=== PATIENT | male | born 1950 | race African-American/Black ===

== ENCOUNTER 2018-06-18 05:32 | Inpatient (IN) | payer OTHER ==
--- NOTE | 2018-06-18 05:58 | PDOC ---
Attending Attestation - Resident Resident Name: Niecy Davalos - ED Attending Attestation I have performed the following: I have examined & evaluated the patient, The case was reviewed & discussed with the resident, I agree w/resident's findings & plan - HPI HPI: 06/18/18 07:22 Pt comes with a gnawing CP that has been persistent x 2 days. Pt states that the pain cannot be described because at time it is pain at times, gastritis at time, burning at times. Pt takes an asa daily. 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 He has known DM and HTN Pt had a stress test, but doesn't know results. Pt has a normal looking EKG and CXR; 1st trop is POSITIVE, Other labs pending. - Physicial Exam PE: 06/18/18 07:26 Agree with resident exam - Medical Decision Making 06/18/18 07:26 Pt will be admitted to tele and he will be started on heparin and asa. Day attending is aware of him; they will follow serial EKGs
[2018-06-18 06:07] VITALS: BMI 28.6
--- NOTE | 2018-06-18 06:12 | PDOC ---
History of Present Illness - General Stated Complaint: CHEST PAIN Time Seen by Provider: 06/18/18 05:58 - History of Present Illness Initial Comments: Seamus Butler is a 68yo man with a PMH of DM, HTN, HLD and recent stress test for new onset of chest pain who presents with continued mid-sternal chest pain. He reports that he has had similar pain for the past two weeks. He went to see his PMD and was referred for a stress test, which was completed last week, but he has not gotten the results yet. Mr Butler reports that the pain is mid-sternal, non-radiating, and uncomfortable. He is unable to describe the pain any further. It lasts several minutes and resolves if he sits quietly and takes deep breaths. He has no associated diaphoresis, nausea, vomiting, or SOB. Initially two weeks ago, the pain occurred when walking or when carrying something heavy. He feels that the pain is getting worse because last night he had similar pain when laying down to sleep and when he rolled over to his left side in bed. He decided to present to the ED here because he had the recent stress test completed here. He does not currently have any pain or complaints. Past History - Past Medical History Allergies/Adverse Reactions: Allergies Allergy/AdvReac Type Severity Reaction Status Date / Time No Known Allergies Allergy Verified 06/18/18 06:10 Home Medications: Ambulatory Orders Aspirin [ASA -] 81 mg PO DAILY 06/18/18 Hydrochlorothiazide 25 mg PO DAILY 06/18/18 Lisinopril 10 mg PO DAILY 06/18/18 Metformin HCl [Glucophage] 1,000 mg PO BID 06/18/18 Simvastatin 20 mg PO DAILY 06/18/18 Tamsulosin HCl [Flomax] 0.4 mg PO DAILY 06/18/18 - Suicide/Smoking/Psychosocial Hx Smoking History: Never smoked Have you smoked in the past 12 months: No Hx Alcohol Use: No Drug/Substance Use Hx: No Review of Systems - Review of Systems Comments:: General: No fevers, no chills, no weight or appetite change, no malaise HEENT: No changes in vision, no changes in hearing, no congestion, no sore throat CV: See HPI. No palpitations, no LE edema Pulm: No SOB, no cough, no wheezing GI: No nausea or vomiting, no change in bowel habits, no melena : No frequency, no urgency, no dysuria Musc: No back pain, no joint swelling, no recent injury Skin: No rash, no lesions, no erythema Endo: No excessive thirst, no heat/cold intolerance Heme: No unusual bruising or bleeding, no swollen glands Neuro: No syncope, no numbness/tingling, no focal weakness Vasc: No claudication Psych: No recent change in mood, no SI or HI *Physical Exam - Vital Signs Last Vital Signs Temp Pulse Resp BP Pulse Ox 98.3 F 65 18 163/78 100 06/18/18 06:04 06/18/18 06:04 06/18/18 06:04 06/18/18 06:04 06/18/18 06:04 - Physical Exam Comments: General: Comfortable, no acute distress HEENT: PERRL, EOMI, MMM, voice normal, normal neck ROM, no LAD Cards: RRR, no murmur appreciated. No reproducible pain. Pulm: Comfortable on room air, clear to auscultation bilaterally Abd: Soft, nontender, nondistended : No CVA tenderness Ext: Atraumatic. No LE edema. ROM intact. Strength 5/5 and equal bilaterally Vasc: Extremities WWP. Skin: Normal color, no rashes or lesions Neuro: A&Ox3, CN grossly intact, normal speech, motor/sensory grossly intact and symmetric Psych: Mood appropriate to situation Medical Decision Making - Medical Decision Making 06/18/18 06:50 Asif Butler is a 68yo man with a PMH of HTN, HLD, DM, recent TIA, and new onset of angina who presents with mid-sternal chest pain similar to what he has been experiencing for the past several weeks. - No current pain while in the ED - EKG completed. Normal sinus, 60/min, left axis deviation. No T-wave or ST abnormalities - Cardiac profile sent - Recent stress test on 06/14/18 indicates angina. Symptoms are most likely due to recently diagnosed angina. 06/18/18 07:03 - Trop positive at 0.08 - CBC, chemistry, coags ordered for admission to telemetry 06/18/18 07:12 Patient signed out to Dr Richards for remainder of care. Seen and discussed with Dr Spivey. Niecy Davalos PGY1 *DC/Admit/Observation/Transfer Diagnosis at time of Disposition: Angina pectoris - Discharge Dispostion Condition at time of disposition: Stable - Referrals Referrals: Horace Oliver MD [Primary Care Provider] - - Patient Instructions Printed Discharge Instructions: DI for Angina Additional Instructions: Discharge Instructions; - You were seen in the ED for chest pain - Your EKG and troponin (a blood tests that shows possible heart damage) were both normal - A recent stress test showed that you have angina. This is most likely the cause of your pain. Please see the attached information sheet. 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 They can discuss your stress test results more thoroughly. - Seek immediate medical attention if you have chest pain that does not resolve with rest, new or different chest pain, pain with shortness of breath, sweating , nausea/vomiting, or that moves to your jaw or arm. - Post Discharge Activity
[2018-06-18] MEDS ORDERED: HEPARIN NA (PORCINE) 5,000 UNITS/ML 1ML VIAL IVPUSH PRN ×2 (07:17)
[2018-06-18] MEDS ORDERED: ASPIRIN 81 MG CHEWABLE TABLETS PO ONE (07:18)
--- NOTE | 2018-06-18 07:25 | PDOC ---
*Physical Exam - Vital Signs Last Vital Signs Temp Pulse Resp BP Pulse Ox 98.3 F 65 18 163/78 100 06/18/18 06:04 06/18/18 06:04 06/18/18 06:04 06/18/18 06:04 06/18/18 06:04 - Physical Exam Comments: 06/18/18 11:17 Briefly, this is a 68M w/ pmhx of HTN, HLD, DM who presents with 2 week history of substernal chest pressure worsened by exertion. Recent stress test done 06/14 showed mod sized intensity inferior septal reversible perfusion defect c/w ischemia. Normal EF 54%. ED Treatment Course - LABORATORY CBC & Chemistry Diagram: 06/18/18 07:18 06/18/18 08:03 - ADDITIONAL ORDERS Additional order review: Laboratory Results 06/18/18 06:05 Creatine Kinase 387 H Creatine Kinase Index 0.7 CK-MB (CK-2) 2.8 Troponin I 0.08 H Medical Decision Making - Medical Decision Making 06/18/18 07:[address] Davalos. 68M w/ pmhx of HLD, HTN, DM presents today for chest pain, recently seen by cardio, with stress test done. Pt has had intermittent chest pressure worsened by exertion. He has significant history of DM, HLD, HTN which put him at higher risk for an acute cardiac event with elevated troponins. -trop 0.08. -CBC/CMP ordered -Aspirin and Heparin drip ordered -Stress test results (06/14/18): Mod sized intensity inferior septal reversible perfusion defect c/w ischemia. Normal EF 54%. 06/18/18 08:58 -Trops 0.08 > 0.12 -Will admit to tele -Contacted Dr. Rajwinder Azul, await callback 06/18/18 09:30 -Discussed case with Dr. Azul. Advised to call cardio for further recommendation. Discussed case w/ Dr. Sanchez with recommendation to admit patient to inpatient tele. Plans to potentially transfer to [facility] tomorrow for cardiac cath. Spoke with Dr. Azul, agree to admit to inpatient tele. *DC/Admit/Observation/Transfer Diagnosis at time of Disposition: Angina pectoris - Discharge Dispostion Condition at time of disposition: Stable - Referrals - Patient Instructions - Post Discharge Activity
[2018-06-18] MEDS ORDERED: NITROGLYCERIN 2% OINTMENT - 1GM PACKET TD ONE (07:26)
[2018-06-18] MEDS: HEPARIN - 25,000 UNIT in SODIUM CHLORIDE 495 ML IV SCH (07:40)
[2018-06-18 08:21] LABS: BASO % 0.9 % (0-2.0); EOS % 0.4 % (0-4.5); HEMATOCRIT 42.3 % (35.4-49); HEMOGLOBIN 14.6 GM/dL (11.7-16.9); LYMPH % 25.4 % (8-40); MCH 28.8 pg (25.7-33.7); MCHC 34.4 g/dl (32.0-35.9); MEAN CELL VOLUME 83.5 fl (80-96); MEAN PLT VOLUME 9.9 fl (7.5-11.1); MONO % 7.3 % (3.8-10.2); PLATELET COUNT 187 K/MM3 (134-434); RBC 5.06 M/mm3 (4.00-5.60); RDW 13.8 % (11.9-15.9); WHITE BLOOD COUNT 6.4 K/mm3 (4.0-10.0)
[2018-06-18 08:34] LABS: INR 0.98 (0.83-1.09); PROTHROMBIN TIME (PATIENT) 11.6 SEC (9.7-13.0)
[2018-06-18 08:37] LABS: ALBUMIN 4.1 g/dl (3.4-5.0); ALK PHOS 55 U/L (45-117); ANION GAP 10 MMOL/L (8-16); BILIRUBIN,TOTAL 0.7 mg/dL (0.2-1); BLOOD UREA NITROGEN 11 mg/dL (7-18); CALCIUM 8.8 mg/dL (8.5-10.1); CHLORIDE 103 mmol/L (98-107); CO2 25 mmol/L (21-32); CREATININE 1.2 mg/dL (0.55-1.3); GLUCOSE,RANDOM 91 mg/dL (74-106); POTASSIUM 4.1 mmol/L (3.5-5.1); SGOT/AST 22 U/L (15-37); SGPT/ALT 27 U/L (13-61); SODIUM 138 mmol/L (136-145); TOT PROT 7.5 g/dl (6.4-8.2)
--- NOTE | 2018-06-18 11:37 | EKG ---
Test Reason : Blood Pressure : / mmHG Vent. Rate : 060 BPM Atrial Rate : 060 BPM P-R Int : 160 ms QRS Dur : 086 ms QT Int : 398 ms P-R-T Axes : 068 -30 032 degrees QTc Int : 398 ms POOR DATA QUALITY, INTERPRETATION MAY BE ADVERSELY AFFECTED NORMAL SINUS RHYTHM LEFT AXIS DEVIATION MINIMAL VOLTAGE CRITERIA FOR LVH, MAY BE NORMAL VARIANT ABNORMAL ECG NO PREVIOUS ECGS AVAILABLE Confirmed by CATHLEEN SLAUGHTER, SHELLY ([id number]) on 06/18/2018 11:37:30 AM Referred By: Confirmed By:SHELLY CONNOLLY MD
--- NOTE | 2018-06-18 13:23 | CON.CARD ---
Consult Consult Specialty:: Cardiology Referred by:: ER Reason for Consultation:: chest pain - History of Present Illness Chief Complaint: chest pain History of Present Illness: 68yo man with a PMH of DM, HTN, HLD and recent stress test for new onset of chest pain who presents with continued mid-sternal chest pain. He reports that he has had similar pain for the past two weeks. found with elevated troponin. no ecg changes. pain has been at rest and exertional. Nuclear stress test 06/14/18 mod sized mod intensity septal ischemia EF 54% - History Source History Provided By: Patient, Medical Record Limitations to Obtaining History: No Limitations - Alcohol/Substance Use Hx Alcohol Use: No - Smoking History Smoking history: Never smoked Have you smoked in the past 12 months: No Home Medications - Allergies Allergies/Adverse Reactions: Allergies Allergy/AdvReac Type Severity Reaction Status Date / Time No Known Allergies Allergy Verified 06/18/18 06:10 - Home Medications Home Medications: Ambulatory Orders Aspirin [ASA -] 81 mg PO DAILY 06/18/18 Hydrochlorothiazide 25 mg PO DAILY 06/18/18 Lisinopril 10 mg PO DAILY 06/18/18 Metformin HCl [Glucophage] 1,000 mg PO BID 06/18/18 Simvastatin 20 mg PO DAILY 06/18/18 Tamsulosin HCl [Flomax] 0.4 mg PO DAILY 06/18/18 Vital Signs: Vital Signs Temperature 98.3 F 06/18/18 06:04 Pulse Rate 58 L 06/18/18 09:38 Respiratory Rate 16 06/18/18 09:05 Blood Pressure 122/55 L 06/18/18 09:05 O2 Sat by Pulse Oximetry (%) 98 06/18/18 09:58 Constitutional: Yes: No Distress, Calm Eyes: Yes: Conjunctiva Clear, EOM Intact HENT: Yes: Normocephalic Neck: Yes: Supple, Trachea Midline Respiratory: Yes: Regular, CTA Bilaterally Gastrointestinal: Yes: Normal Bowel Sounds, Soft Renal/: Yes: WNL Cardiovascular: Yes: Regular Rate and Rhythm JVD: No Carotid Bruit: No PMI: Non-Displaced Heart Sounds: Yes: S1, S2 Musculoskeletal: Yes: WNL Extremities: Yes: WNL Edema: No Peripheral Pulses WNL: Yes - Other Data Labs, Other Data: CBC, BMP 06/18/18 07:18 06/18/18 08:03 INR, PTT INR 0.98 (0.83-1.09) 06/18/18 08:00 Troponin, BNP 06/18/18 06/18/18 06:05 08:03 Troponin I 0.08 H 0.12 H Troponin, BNP 06/18/18 06/18/18 06:05 08:03 Troponin I 0.08 H 0.12 H Imaging - Results Chest X-ray: Report Reviewed EKG: Report Reviewed (nsr lvh) Assessment/Plan 68yo man with a PMH of DM, HTN, HLD and recent stress test for new onset of chest pain who presents with continued mid-sternal chest pain. He reports that he has had similar pain for the past two weeks. found with elevated troponin. no ecg changes. pain has been at rest and exertional. Nuclear stress test 06/14/18 mod sized mod intensity septal ischemia EF 54% 1. Unstable angina -transfer to [facility] tomorrow for cardiac cath possible PCI -continue asa and heparin. -continue BB 2, NIDDM -hold metformin before cath, follow fs 3. chol change simva to atorvastatin 80 mg daily.
[2018-06-18] MEDS ORDERED: INSULIN REGULAR HUMAN 100 UNITS/ML *VIAL ONE (18:01)
[2018-06-18] MEDS: INSULIN (NOVOLOG) ASPART 100 UNITS/ML 10ML VIAL SQ SCH ×2 (18:04→21:49)
--- NOTE | 2018-06-18 18:32 | HP ---
Admitting History and Physical - Primary Care Physician PCP: Horace Oliver - Admission Chief Complaint: chest pain History of Present Illness: ER HISTORY - History of Present Illness Initial Comments: Seamus Butler is a 68yo man with a PMH of DM, HTN, HLD and recent stress test for new onset of chest pain who presents with continued mid-sternal chest pain. He reports that he has had similar pain for the past two weeks. He went to see his PMD and was referred for a stress test, which was completed last week, but he has not gotten the results yet. Mr Butler reports that the pain is mid-sternal, non-radiating, and uncomfortable. He is unable to describe the pain any further. It lasts several minutes and resolves if he sits quietly and takes deep breaths. He has no associated diaphoresis, nausea, vomiting, or SOB. Initially two weeks ago, the pain occurred when walking or when carrying something heavy. He feels that the pain is getting worse because last night he had similar pain when laying down to sleep and when he rolled over to his left side in bed. He decided to present to the ED here because he had the recent stress test completed here. He does not currently have any pain or complaints. Pt seen by me in the ER Currently feels a pressure like sensation in the middle of chest which is better.He had not seen a [employer] Supervisor outpt- had a nuclear stress test done here in [facility] a few days ago and did not receive results. in the [employer] system, it appears that the stress test was abnormal He continued to have chest pain and felt it more in the middle of the night which prompted th ept to come to the ER immediately . 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 [employer] History Source: Patient Limitations to Obtaining History: No Limitations - Past Medical History Cardiovascular: Yes: HTN Endocrine: Yes: Diabetes Mellitus - Smoking History Smoking history: Never smoked Have you smoked in the past 12 months: No - Alcohol/Substance Use Hx Alcohol Use: No Home Medications - Allergies Allergies/Adverse Reactions: Allergies Allergy/AdvReac Type Severity Reaction Status Date / Time No Known Allergies Allergy Verified 06/18/18 06:10 - Home Medications Home Medications: Ambulatory Orders Aspirin [ASA -] 81 mg PO DAILY 06/18/18 Hydrochlorothiazide 25 mg PO DAILY 06/18/18 Lisinopril 10 mg PO DAILY 06/18/18 Metformin HCl [Glucophage] 1,000 mg PO BID 06/18/18 Simvastatin 20 mg PO DAILY 06/18/18 Tamsulosin HCl [Flomax] 0.4 mg PO DAILY 06/18/18 Review of Systems - Review of Systems Constitutional: denies: Chills, Fever Cardiovascular: reports: Chest Pain. denies: Edema, Palpitations, Shortness of Breath Physical Examination Vital Signs: Vital Signs Temperature 98.3 F 06/18/18 06:04 Pulse Rate 58 L 06/18/18 09:38 Respiratory Rate 16 06/18/18 09:05 Blood Pressure 122/55 L 06/18/18 09:05 O2 Sat by Pulse Oximetry (%) 98 06/18/18 09:58 Constitutional: Yes: No Distress, Calm Cardiovascular: Yes: Regular Rate and Rhythm Respiratory: Yes: CTA Bilaterally Gastrointestinal: Yes: Normal Bowel Sounds, Soft. No: Tenderness Edema: No Labs: CBC, BMP 06/18/18 07:18 06/18/18 08:03 Imaging - Results Chest X-ray: Image Reviewed (clear) EKG: Image Reviewed (NSR) Problem List - Problems (1) NSTEMI (non-ST elevated myocardial infarction) Code(s): I21.4 - NON-ST ELEVATION (NSTEMI) MYOCARDIAL INFARCTION (2) DM2 (diabetes mellitus, type 2) Code(s): E11.9 - TYPE 2 DIABETES MELLITUS WITHOUT COMPLICATIONS (3) HTN (hypertension) Code(s): I10 - ESSENTIAL (PRIMARY) HYPERTENSION (4) Hyperlipemia Code(s): E78.5 - HYPERLIPIDEMIA, UNSPECIFIED Assessment/Plan PLAN Follow serial cardiac enzymes Cardiology eval appreciated Metformin on hold for now continue with heparin gtt Telemetry pt will be transferred to [facility] tomorrow for cardiac cath continue with meds NPO past midnight
[2018-06-18] MEDS ORDERED: ATORVASTATIN CA 80 MG TABLET (FP) ONE (20:41)
[2018-06-18] MEDS ORDERED: ATORVASTATIN CA 80 MG TABLET (FP) PO SCH (22:00)
[2018-06-18] MEDS ORDERED: ATORVASTATIN CA 10 MG TABLET (FP) PO SCH (22:00)
[2018-06-19] MEDS: INSULIN (NOVOLOG) ASPART 100 UNITS/ML 10ML VIAL SQ SCH ×2 (06:10→13:27)
[2018-06-19 06:50] LABS: BASO % 0.7 % (0-2.0); EOS % 1.6 % (0-4.5); HEMATOCRIT 42.3 % (35.4-49); HEMOGLOBIN 14.5 GM/dL (11.7-16.9); LYMPH % 33.6 % (8-40); MCH 28.7 pg (25.7-33.7); MCHC 34.2 g/dl (32.0-35.9); MEAN CELL VOLUME 84.1 fl (80-96); MEAN PLT VOLUME 9.6 fl (7.5-11.1); MONO % 9.3 % (3.8-10.2); NEUT % 54.8 % (42.8-82.8); PLATELET COUNT 175 K/MM3 (134-434); RBC 5.03 M/mm3 (4.00-5.60); RDW 13.8 % (11.9-15.9); WHITE BLOOD COUNT 6.9 K/mm3 (4.0-10.0)
[2018-06-19 07:14] LABS: ALK PHOS 55 U/L (45-117); ANION GAP 7 MMOL/L (8-16); BILIRUBIN,TOTAL 0.4 mg/dL (0.2-1); BLOOD UREA NITROGEN 18 mg/dL (7-18); CALCIUM 8.9 mg/dL (8.5-10.1); CHLORIDE 103 mmol/L (98-107); CHOLESTEROL 126 mg/dL (50-200); CO2 28 mmol/L (21-32); CREATININE 1.3 mg/dL (0.55-1.3); GLUCOSE,RANDOM 116 mg/dL (74-106); HDL CHOLESTEROL 46 mg/dL (40-60); SGOT/AST 20 U/L (15-37); SGPT/ALT 25 U/L (13-61); SODIUM 138 mmol/L (136-145); TOT PROT 7.2 g/dl (6.4-8.2); TRIGLYCERIDES 80 mg/dL (0-150)
[2018-06-19] MEDS ORDERED: TAMSULOSIN HCL 0.4 MG CAP PO SCH (08:30)
[2018-06-19] MEDS: HEPARIN - 25,000 UNIT in SODIUM CHLORIDE 495 ML IV SCH ×2 (09:02→10:20)
[2018-06-19] MEDS ORDERED: HYDROCHLOROTHIAZIDE 25 MG TABLET (FP) PO SCH (10:00)
[2018-06-19] MEDS ORDERED: LISINOPRIL 10 MG TABLET (FP) PO SCH (10:00)
[2018-06-19] MEDS ORDERED: ASPIRIN 81 MG CHEWABLE TABLETS PO SCH (10:00)
[2018-06-19] MEDS ORDERED: HEPARIN INFUSION - 25,000 UNITS/500 ML INFUS.BAG IVPB ONE (10:20)
--- NOTE | 2018-06-19 10:31 | EKG ---
Test Reason : Blood Pressure : / mmHG Vent. Rate : 057 BPM Atrial Rate : 057 BPM P-R Int : 160 ms QRS Dur : 104 ms QT Int : 396 ms P-R-T Axes : 078 -41 047 degrees QTc Int : 385 ms SINUS BRADYCARDIA LEFT AXIS DEVIATION NONSPECIFIC T WAVE ABNORMALITY ABNORMAL ECG WHEN COMPARED WITH ECG OF 18-JUN-2018 06:04, T WAVE INVERSION NOW EVIDENT IN LATERAL LEADS Confirmed by PITER MOONEY MD ([id number]) on 06/19/2018 10:31:09 AM Referred By: Confirmed By:PITER MOONEY MD
--- NOTE | 2018-06-19 10:39 | PN ---
Progress Note (short form) - Note Progress Note: pt seen/ examined in er chart reviewed. On heparin drip Had cp before - better now Vital Signs Temp 98.4 F 06/19/18 10:00 Pulse 66 06/19/18 10:00 Resp 16 06/19/18 10:00 BP 110/70 06/19/18 10:00 Pulse Ox 100 06/19/18 09:00 Intake & Output 06/18/18 06/18/18 06/19/18 11:59 23:59 11:59 Weight Other: Voiding Method Toilet Toilet Height Body Mass Index (BMI) Weight Measurement Method Active Medications Aspirin (Asa -) 81 mg PO DAILY [facility] Last Admin: 06/19/18 10:09 Dose: 81 mg Atorvastatin Calcium (Lipitor -) 80 mg PO HS [facility] Last Admin: 06/18/18 21:50 Dose: 80 mg Heparin Sodium (Porcine) (Heparin -) 1,000 unit IVPUSH PRN PRN PRN Reason: Heparin Heparin Sodium (Porcine) (Heparin -) 5,000 unit IVPUSH PRN PRN PRN Reason: Heparin Hydrochlorothiazide (Hctz -) 25 mg PO DAILY [facility] Last Admin: 06/19/18 10:10 Dose: 25 mg Heparin Sodium (Porcine) 25, (000 unit/ Sodium Chloride) 500 mls @ 20 mls/hr IV TITR [facility]; Protocol Last Admin: 06/19/18 10:20 Dose: 1,000 unit/hr, 20 mls/hr Insulin Aspart (Novolog Vial) 0 units SQ ACHS [facility]; Protocol Last Admin: 06/19/18 06:10 Dose: Not Given Lisinopril (Prinivil) 10 mg PO DAILY [facility] Last Admin: 06/19/18 10:10 Dose: 10 mg Tamsulosin HCl (Flomax -) 0.4 mg PO DAILY@0830 [facility] Last Admin: 06/19/18 08:08 Dose: 0.4 mg CBC, BMP 06/19/18 06:30 06/19/18 06:30 Physical Examination Constitutional: Yes: No Distress, alert/ awake Cardiovascular: Yes: Regular Rate and Rhythm Respiratory: Yes: CTA Bilaterally Gastrointestinal: Yes: Normal Bowel Sounds, Soft. No: Tenderness Edema: No Imaging - Results Chest X-ray: Image Reviewed (clear) EKG: Image Reviewed (NSR) Problem List - Problems (1) NSTEMI (non-ST elevated myocardial infarction) Code(s): I21.4 - NON-ST ELEVATION (NSTEMI) MYOCARDIAL INFARCTION (2) DM2 (diabetes mellitus, type 2) Code(s): E11.9 - TYPE 2 DIABETES MELLITUS WITHOUT COMPLICATIONS (3) HTN (hypertension) Code(s): I10 - ESSENTIAL (PRIMARY) HYPERTENSION (4) Hyperlipemia Code(s): E78.5 - HYPERLIPIDEMIA, UNSPECIFIED Assessment/Plan Discussed with pt comfortable Cardiology eval appreciated Metformin on hold for now continue with heparin gtt pt will be transferred to [facility] tomorrow for cardiac cath today continue with meds. will follow
--- NOTE | 2018-06-19 13:28 | PN ---
Progress Note, Physician Chief Complaint: Had CP this am. Now pain free. History of Present Illness: 68 diabetic M with recent angina and positive stress was admitted with refractory pain and NSTEMI. Planning to transfer to [facility]. - Current Medication List Current Medications: Active Medications Aspirin (Asa -) 81 mg PO DAILY [facility] Last Admin: 06/19/18 10:09 Dose: 81 mg Atorvastatin Calcium (Lipitor -) 80 mg PO HS [facility] Last Admin: 06/18/18 21:50 Dose: 80 mg Heparin Sodium (Porcine) (Heparin -) 1,000 unit IVPUSH PRN PRN PRN Reason: Heparin Heparin Sodium (Porcine) (Heparin -) 5,000 unit IVPUSH PRN PRN PRN Reason: Heparin Hydrochlorothiazide (Hctz -) 25 mg PO DAILY [facility] Last Admin: 06/19/18 10:10 Dose: 25 mg Heparin Sodium (Porcine) 25, (000 unit/ Sodium Chloride) 500 mls @ 20 mls/hr IV TITR [facility]; Protocol Last Admin: 06/19/18 10:20 Dose: 1,000 unit/hr, 20 mls/hr Insulin Aspart (Novolog Vial) 0 units SQ ACHS [facility]; Protocol Last Admin: 06/19/18 06:10 Dose: Not Given Lisinopril (Prinivil) 10 mg PO DAILY [facility] Last Admin: 06/19/18 10:10 Dose: 10 mg Tamsulosin HCl (Flomax -) 0.4 mg PO DAILY@0830 [facility] Last Admin: 06/19/18 08:08 Dose: 0.4 mg - Objective Vital Signs: Vital Signs Temperature 98.4 F 06/19/18 10:00 Pulse Rate 66 06/19/18 10:00 Respiratory Rate 16 06/19/18 10:00 Blood Pressure 110/70 06/19/18 10:00 O2 Sat by Pulse Oximetry (%) 100 06/19/18 09:00 Constitutional: Yes: Well Nourished, No Distress Eyes: Yes: Conjunctiva Clear HENT: Yes: Atraumatic, Normocephalic Neck: Yes: Supple, Trachea Midline Respiratory: Yes: Regular, CTA Bilaterally Gastrointestinal: Yes: Normal Bowel Sounds, Soft Edema: No Peripheral Pulses WNL: Yes Labs: CBC, BMP 06/19/18 06:30 06/19/18 06:30 INR, PTT INR 0.98 (0.83-1.09) 06/18/18 08:00 Problem List - Problems (1) Angina pectoris Code(s): I20.9 - ANGINA PECTORIS, UNSPECIFIED Assessment/Plan 68yo man with a PMH of DM, HTN, HLD and recent stress test for new onset of chest pain who presents with continued mid-sternal chest pain. He reports that he has had similar pain for the past two weeks. found with elevated troponin. no ecg changes. pain has been at rest and exertional. Nuclear stress test 06/14/18 mod sized mod intensity septal ischemia EF 54% 1. Unstable angina -To be transferred to [facility] today -Keep NPO -Brilinta 180mg PO x 1 now -continue asa and heparin. -continue BB 2, NIDDM -hold metformin before cath, follow fs 3. chol atorvastatin 80 mg daily.
[2018-06-19] MEDS ORDERED: TICAGRELOR 90 MG TABLET PO ONE (13:34)
[2018-06-19 17:28] VITALS: BP 117/71; PULSE 60; TEMP 98.3
[2018-06-20] MEDS ORDERED: INSULIN SLIDING SCALE (NOVOLOG) 1 VIAL SQ SCH (07:00)
--- NOTE | 2018-06-21 19:34 | DS ---
Physical Examination Vital Signs: Vital Signs Temperature 98.3 F 06/19/18 14:31 Pulse Rate 60 06/19/18 14:31 Respiratory Rate 16 06/19/18 14:31 Blood Pressure 117/71 06/19/18 14:31 O2 Sat by Pulse Oximetry (%) 100 06/19/18 09:00 Labs: CBC, BMP 06/19/18 06:30 06/19/18 06:30 Discharge Summary Reason For Visit: ANGINA PESTORIS Condition: Stable - Instructions Diet, Activity, Other Instructions: Discharge Instructions; - You were seen in the ED for chest pain - Your EKG and troponin (a blood tests that shows possible heart damage) were both normal - A recent stress test showed that you have angina. This is most likely the cause of your pain. Please see the attached information sheet. 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 They can discuss your stress test results more thoroughly. - Seek immediate medical attention if you have chest pain that does not resolve with rest, new or different chest pain, pain with shortness of breath, sweating , nausea/vomiting, or that moves to your jaw or arm. Referrals: Horace Oliver MD [Primary Care Provider] - Disposition: TRANSFER ACUTE CARE/OTHER HOSP - Home Medications Comprehensive Discharge Medication List: Ambulatory Orders Aspirin [ASA -] 81 mg PO DAILY 06/18/18 Hydrochlorothiazide 25 mg PO DAILY 06/18/18 Lisinopril 10 mg PO DAILY 06/18/18 Metformin HCl [Glucophage] 1,000 mg PO BID 06/18/18 Simvastatin 20 mg PO DAILY 06/18/18 Tamsulosin HCl [Flomax] 0.4 mg PO DAILY 06/18/18
== END 2018-06-19 17:38 | disposition short-term general hospital (02) | DRG 282 ==
LOC: JER 05:32 → JERBED 09:33
PROVIDERS: ADMIT Internal Medicine; ATTEND Internal Medicine
DX: I21.4 Non-ST elevation (NSTEMI) myocardial infarction (principal); E11.9 Type 2 diabetes mellitus without complications; I10 Essential (primary) hypertension; E78.5 Hyperlipidemia, unspecified; Z79.84 Long term (current) use of oral hypoglycemic drugs
CPT/HCPCS: 36415; 71046-TC-FY; 80053; 80061; 82550; 82553; 82962; 83036; 83721; 84484; 85025; 85610; 85730; 93005; 93010; 99285-25; J1644